=== PATIENT | male | born 1950 | race Caucasian/White ===

== ENCOUNTER → 2016-12-06 | Day surgery (SDC) | payer MEDICARE, BC ==
[~2016-12-06] MED LIST: ACETAMINOPHEN/HYDROcodone 325 MG/5 MG TAB ONE; BUPIVACAINE/EPINEPHRINE 0.25% PF 30 ML VIAL ONE; KETOROLAC TROMETHAMINE 30 MG/ML (IVP) VIAL IV PUSH ONE; LACTATED RINGER'S 1000 ML INJ 1,000 ML ONE; MIDAZOLAM HCL 2 MG/2 ML VIAL ONE; ONDANSETRON HCL 4 MG/2 ML VIAL IV PUSH ONE; PROPOFOL 200 MG/20 ML AMP IV ONE; ceFAZolin 2 GM PREMIX 50 ML ONE
--- NOTE | 2016-12-06 14:30 | TN ---
cc: KAREN GRIMM M.D. DATE OF SURGERY: 12/06/2016 PREOPERATIVE DIAGNOSIS Symptomatic bilateral inguinal hernias, left greater than right. POSTOPERATIVE DIAGNOSIS 1. Symptomatic bilateral inguinal hernias, left greater than right. 2. Bilateral indirect inguinal hernias. PROCEDURE PERFORMED Laparoscopic bilateral inguinal hernia repair with mesh. SURGEON Karen Grimm MD ANESTHESIA General LMA. COMPLICATIONS None. INDICATION FOR PROCEDURE Mr. Prescott is a pleasant 66-year-old gentleman who noted a symptomatic bulge in his left groin. He was seen and evaluated and referred for surgical evaluation. On physical exam the patient was found to have bilateral inguinal hernias, left greater than right. He was offered laparoscopic repair with mesh. The patient was agreeable. DETAILS OF PROCEDURE The patient was identified, brought to the operating room and placed supine on the operating table. After adequate general anesthesia was achieved with LMA, the anterior abdomen and groin was prepped and draped in a standard surgical fashion. 0.25% Marcaine was injected in the skin and subcutaneous tissue along the infraumbilical ridge. Infraumbilical incision was made. Dissection was carried down through subcutaneous tissue to the anterior rectus fascia. Anterior rectus fascia was then incised vertically off the midline. Rectus muscle was then retracted laterally. Preperitoneal space was entered with blunt finger dissection. Blunt dissecting balloon was inserted and insufflated with 30 pumps of air under direct vision using 0 degree laparoscope. Dissecting balloon was removed and balloon trocar inserted. Preperitoneal space was insufflated to 11 mmHg using CO2 gas. Next, two 5 mm trocars were placed in the lower midline under direct vision. Attention was first directed to the midline where Matty's ligament and pubic tubercle were identified. Dissection then proceeded out laterally identifying the cord structures exiting the internal ring. Traveling with the cord structures was a peritoneal hernia sac. It was carefully dissected off the cord structures using hand over hand technique and stripped back several centimeters away from the internal ring. Once this was accomplished a posterior window was made behind the cord structures. A piece of polypropylene mesh was inserted with a slit cut for the cord structures. Mesh was placed through the posterior window and slit reapproximated using the Pro-tacking device. Internal ring was appropriately tightened. Next, the mesh was secured medially along Matty's ligament and pubic tubercle and superior along the posterior abdominal wall fascia. An onlay mesh was then placed over the slit in order buttress it. This mesh was secured medially and laterally using the pro-tacker. With this the indirect and direct spaces were well covered by mesh with generous overlap. Attention was now direct to the left side. On the left side a similar dissection technique was used. On the left side we also encountered an indirect inguinal hernia sac traveling with the cord structures. It was carefully dissected out of the inguinal canal and back away from the internal ring using hand over hand technique. The hernia sac was stripped away from the internal ring several centimeters. A posterior window was then made behind the cord structures. Again, polypropylene mesh was inserted with a slit cut for the cord structures. Mesh was placed through the posterior window. The slit was then reapproximated and closed with a Pro-tacking device, appropriately tightening the internal ring. Mesh was then secured medially at Matty's ligament and pubic tubercle and superior along the posterior abdominal wall fascia. Again an onlay mesh was placed over the first mesh in order to cover the slit. This mesh was secured medially and laterally using pro tacking device. With this the indirect and direct spaces were all covered by mesh. Preperitoneal space was injected with additional local anesthetic. Inferior borders of the mesh were then held down and the preperitoneal space was desufflated. The peritoneum was seen to roll up over the mesh and again with excellent coverage of the indirect and direct spaces. All trocars were removed under direct vision. Anterior rectus fascia was repaired using 0 Vicryl suture in a [id number] fashion. Skin was closed with 4-0 Vicryl. The patient tolerated the procedure well, was awakened and brought to recovery in stable condition. MD CAREN Talavera/TIFFANY /2:11 PM /2:20 PM
== END | disposition home or self-care (01) ==
LOC: ESDC 10:39
PROVIDERS: ATTEND Surgery Trauma Surgery
DX: K40.20 Bilateral inguinal hernia, without obstruction or gangrene, not specified as recurrent (principal)
CPT/HCPCS: 00840; 49650; C1727; C1781; J0690; J1885; J2250; J2405; J3010; J7120